=== PATIENT | male | born 1985 | race Caucasian/White ===

== ENCOUNTER 2021-07-28 09:16 | Inpatient (IN) ==
[2021-07-28] MEDS ORDERED: ONDANSETRON INJ 2 MG/ML 2 ML VIAL IV STA (09:27)
[2021-07-28] MEDS ORDERED: diphenhydrAMINE 50 MG/ML VIAL IV STA (09:27)
[2021-07-28] MEDS ORDERED: SODIUM CHLORIDE 0.9% 1000ML 2,000 ML IV SCH (09:30)
--- NOTE | 2021-07-28 09:31 | Emergency Department Note ---
History of Present Illness General Chief complaint: Illness Time Seen by Provider: 07/28/21 09:17 History of Present Illness Maximum Pain Intensity: 8 35-year-old male presents to the ED with a chief complaint of nausea and vomiting started early morning. He states that he has been vomiting ever since. He has not been able to keep any fluids down. He reports feeling crampy all over. The patient states that he does smoke medical marijuana. He has not smoked anything since Saturday. No abdominal pains other than discomfort from vomiting no fevers. No headaches. No chest pains or shortness of breath Home Medications Medication Instructions Recorded Confirmed Type Medical Marijuana 0 mg INHALATION UD 07/28/21 07/28/21 History Allergies Allergy/AdvReac Type Severity Reaction Status Date / Time No Known Allergies Allergy Unverified 07/28/21 10:34 Past Med/Surg History Medical History Ear pain, left Pneumonia Surgical History No pertinent past surgical history Family History Other No pertinent family history in first degree relatives Social History Smoking Status: Current every day smoker Preferred Language: [place]an Feels Safe at Home: Yes Review of Systems A total of 10 systems reviewed and were otherwise negative Physical Exam Vital Signs Vital Signs - 24 hr 07/28/21 09:19 07/28/21 09:29 07/28/21 09:54 Temperature 36.6 C Temperature Source Oral Pulse Rate 102 H 86 Pulse Rate [Finger] 96 H Pulse Rhythm Regular Regular Pulse Rhythm [Finger] Regular Pulse Strength Normal Pulse Strength [Finger] Normal Respiratory Rate 20 20 18 Respiratory Effort / Characteristics Non-Labored Non-Labored Respiratory Depth Normal Normal Blood Pressure 136/110 H Blood Pressure [Left Arm] 127/88 Blood Pressure Mean 118 Blood Pressure Mean [Left Arm] 101 Blood Pressure Position Sitting Blood Pressure Position [Left Arm] Lying Pulse Oximetry 95 97 94 Oxygen Delivery Method Room Air Room Air Room Air Sepsis Recent Fever Within 48 Hours No Sepsis New/Unexplained Change in Mental Status No Sepsis Action Taken by Nursing No Action Required 07/28/21 11:01 07/28/21 13:00 Temperature Temperature Source Pulse Rate Pulse Rate [Finger] 79 84 Pulse Rhythm Pulse Rhythm [Finger] Regular Regular Pulse Strength Pulse Strength [Finger] Normal Normal Respiratory Rate 18 18 Respiratory Effort / Characteristics Non-Labored Non-Labored Respiratory Depth Normal Normal Blood Pressure Blood Pressure [Left Arm] 139/93 144/73 H Blood Pressure Mean Blood Pressure Mean [Left Arm] 108 96 Blood Pressure Position Blood Pressure Position [Left Arm] Lying Lying Pulse Oximetry 92 98 Oxygen Delivery Method Room Air Room Air Sepsis Recent Fever Within 48 Hours Sepsis New/Unexplained Change in Mental Status Sepsis Action Taken by Nursing CONSTITUTIONAL/VITAL SIGNS: Reviewed / noted above. GENERAL: Non-toxic in appearance. INTEGUMENTARY: Warm, dry, and [place]. HEAD: Normocephalic. EYES: without scleral icterus or trauma. ENT/OROPHARYNX: clear and moist. LYMPHADENOPATHY/NECK: Is supple without lymphadenopathy or meningismus. RESPIRATORY: Clear to auscultation bilaterally. No increased work of breathing. CARDIOVASCULAR: Regular rate and rhythm. GI/ABDOMEN: Soft and nontender. No organomegaly or pulsatile mass. EXTREMITIES: Warm and well perfused. BACK: No CVA tenderness. NEUROLOGICAL: Intact without focal deficits. PSYCHIATRIC: normal affect. MUSCULOSKELETAL: Normally developed with good muscle tone. TRIAGE NURSING DOCUMENTATION REVIEWED. Course Administered Medications Lactated Ringer's (Lr) 1,000 mls @ 200 mls/hr IV .Q5H [facility] Stop: 07/29/21 04:44 Last Admin: 07/28/21 14:34 Dose: 200 mls/hr Documented by: [id number] Discontinued Medications Diphenhydramine HCl (Diphenhydramine 50 Mg/Ml Vial) 25 mg IV NOW STA Stop: 07/28/21 09:28 Last Admin: 07/28/21 09:32 Dose: 25 mg Documented by: [id number] Sodium Chloride (Nss 1000ml) 2,000 mls @ 999 mls/hr IV .Q2H1M [facility] Stop: 07/28/21 11:30 Last Infusion: 07/28/21 11:31 Dose: 999 mls/hr Documented by: [id number] Admin: 07/28/21 09:30 Dose: 999 mls/hr Documented by: [id number] Sodium Chloride (Nss 1000ml) 1,000 mls @ 999 mls/hr IV .Q1H1M [facility] Stop: 07/28/21 12:35 Last Infusion: 07/28/21 13:32 Dose: 999 mls/hr Documented by: [id number] Admin: 07/28/21 12:31 Dose: 999 mls/hr Documented by: [id number] Ondansetron HCl (Ondansetron Inj 2 Mg/Ml 2 Ml Vial) 4 mg IV NOW STA Stop: 07/28/21 09:28 Last Admin: 07/28/21 09:32 Dose: 4 mg Documented by: [id number] Medical Decision Making Differential Diagnosis Differential considered: pancreatitis, hepatitis, acute cholecystitis, AAA, UTI, pyelonephritis, kidney stones, appendicitis, diverticulitis, shingles, bowel obstruction, mesenteric ischemia, intussusception,hernia, testicular torsion dehydration Medical Records Attestation: I reviewed the patient's medical records. Home Medications Current Medication List: was personally reviewed by me Laboratory Data Attestation: I reviewed the patient's lab results. Result diagrams: 07/28/21 09:24 07/28/21 14:12 Lab Results 07/28/21 07/28/21 07/28/21 Range/Units 09:24 09:24 11:45 WBC 21.28 H (4.8-10.8) K/uL RBC 5.55 (4.7-6.1) M/uL Hgb 18.9 H (14.0-18.0) g/dL Hct 50.7 (42-52) % MCV 91.4 (80-100) fL MCH 34.1 H (25-34) pg MCHC 37.3 H (32-36) g/dL RDW Std Deviation 43.5 (36.4-46.3) fL RDW Coeff of Rachel 13.2 (11.5-14.5) % Plt Count 246 (130-400) K/uL MPV 11.4 H (7.4-10.4) fL Immature Gran % (Auto) 0.3 % Neut % (Auto) 82.5 % Lymph % (Auto) 5.2 % Travis % (Auto) 12.0 % Eos % (Auto) 0.0 % Baso % (Auto) 0.0 % Neut # (Auto) 17.54 H (1.4-6.5) K/uL Lymph # (Auto) 1.10 L (1.2-3.4) K/uL Travis # (Auto) 2.55 H (0.11-0.59) K/uL Eos # (Auto) 0.01 (0-0.5) K/uL Baso # (Auto) 0.01 (0-0.2) K/uL Immature Gran # (Auto) 0.07 H (0.00-0.02) K/uL POC pH 7.52 H* (7.35-7.45) POC pCO2 27 L (35-46) mmHg POC pO2 38 L (80-95) mmHg POC HCO3 22 (19-24) natalie/L POC Total CO2 23 L (24-31) mmol/L POC Base Excess -1.0 (-9-1.8) natalie/L ABG pH ABG pCO2 ABG pO2 ABG HCO3 POC ABG O2 Sat 80.0 L (90-95) % ABG O2 Saturation ABG Base Excess [place] Test Barometric Pressure Oxygen Given Sodium 133 L (136-145) mmol/L Potassium 3.7 (3.5-5.1) mmol/L Chloride 87 L (98-107) mmol/L Carbon Dioxide 17 L (21-32) mmol/L Anion Gap 29 H (3-11) BUN 43 H (6-23) mg/dl Creatinine 5.18 H* (0.6-1.4) mg/dl Est Cr Clr Drug Dosing 18.8 ml/min Est GFR ( Amer) 15.2 ml/min Est GFR (Non-Af Amer) 13.1 ml/min BUN/Creatinine Ratio 8.3 L (10-20) Glucose 228 H (70-99(Fasting)) mg/dl Estimat Average Glucose mg/dl Hemoglobin A1c (4.5-5.6) % Osmolality (280-300) mOsm/kg Lactate (0.4-2.0) mmol/L Calcium 11.8 H (8.5-10.1) mg/dl Total Bilirubin 1.4 H (0.2-1.0) mg/dl Direct Bilirubin (0-0.2) mg/dl AST 43 H (13-39) U/L ALT 38 (7-52) U/L Alkaline Phosphatase 79 (34-104) U/L Total Creatine Kinase (30-223) U/L Total Protein 10.1 H (6.0-8.3) gm/dl Albumin 6.7 H (3.4-5.0) gm/dl Globulin 3.4 (2.5-4.0) gm/dl Albumin/Globulin Ratio 2.0 (0.9-2) Lipase 16 (11-82) U/L Procalcitonin (0-0.5) ng/ml Salicylates (3.0-30) mg/dl Acetaminophen (10-30) ug/ml Ethyl Alcohol mg/dL (<10.0) mg/dl SARS-CoV-2, RNA, NAAT (NEGATIVE) 07/28/21 07/28/21 07/28/21 Range/Units 11:54 11:54 11:54 WBC (4.8-10.8) K/uL RBC (4.7-6.1) M/uL Hgb (14.0-18.0) g/dL Hct (42-52) % MCV (80-100) fL MCH (25-34) pg MCHC (32-36) g/dL RDW Std Deviation (36.4-46.3) fL RDW Coeff of Rachel (11.5-14.5) % Plt Count (130-400) K/uL MPV (7.4-10.4) fL Immature Gran % (Auto) % Neut % (Auto) % Lymph % (Auto) % Travis % (Auto) % Eos % (Auto) % Baso % (Auto) % Neut # (Auto) (1.4-6.5) K/uL Lymph # (Auto) (1.2-3.4) K/uL Travis # (Auto) (0.11-0.59) K/uL Eos # (Auto) (0-0.5) K/uL Baso # (Auto) (0-0.2) K/uL Immature Gran # (Auto) (0.00-0.02) K/uL POC pH (7.35-7.45) POC pCO2 (35-46) mmHg POC pO2 (80-95) mmHg POC HCO3 (19-24) natalie/L POC Total CO2 (24-31) mmol/L POC Base Excess (-9-1.8) natalie/L ABG pH ABG pCO2 ABG pO2 ABG HCO3 POC ABG O2 Sat (90-95) % ABG O2 Saturation ABG Base Excess [place] Test Barometric Pressure Oxygen Given Sodium (136-145) mmol/L Potassium (3.5-5.1) mmol/L Chloride (98-107) mmol/L Carbon Dioxide (21-32) mmol/L Anion Gap (3-11) BUN (6-23) mg/dl Creatinine (0.6-1.4) mg/dl Est Cr Clr Drug Dosing ml/min Est GFR ( Amer) ml/min Est GFR (Non-Af Amer) ml/min BUN/Creatinine Ratio (10-20) Glucose (70-99(Fasting)) mg/dl Estimat Average Glucose 105 mg/dl Hemoglobin A1c 5.3 (4.5-5.6) % Osmolality 298 (280-300) mOsm/kg Lactate (0.4-2.0) mmol/L Calcium (8.5-10.1) mg/dl Total Bilirubin (0.2-1.0) mg/dl Direct Bilirubin (0-0.2) mg/dl AST (13-39) U/L ALT (7-52) U/L Alkaline Phosphatase (34-104) U/L Total Creatine Kinase (30-223) U/L Total Protein (6.0-8.3) gm/dl Albumin (3.4-5.0) gm/dl Globulin (2.5-4.0) gm/dl Albumin/Globulin Ratio (0.9-2) Lipase (11-82) U/L Procalcitonin (0-0.5) ng/ml Salicylates < 3.0 L (3.0-30) mg/dl Acetaminophen < 3 L (10-30) ug/ml Ethyl Alcohol mg/dL (<10.0) mg/dl SARS-CoV-2, RNA, NAAT (NEGATIVE) 07/28/21 07/28/21 07/28/21 Range/Units 11:54 11:54 11:56 WBC (4.8-10.8) K/uL RBC (4.7-6.1) M/uL Hgb (14.0-18.0) g/dL Hct (42-52) % MCV (80-100) fL MCH (25-34) pg MCHC (32-36) g/dL RDW Std Deviation (36.4-46.3) fL RDW Coeff of Rachel (11.5-14.5) % Plt Count (130-400) K/uL MPV (7.4-10.4) fL Immature Gran % (Auto) % Neut % (Auto) % Lymph % (Auto) % Travis % (Auto) % Eos % (Auto) % Baso % (Auto) % Neut # (Auto) (1.4-6.5) K/uL Lymph # (Auto) (1.2-3.4) K/uL Travis # (Auto) (0.11-0.59) K/uL Eos # (Auto) (0-0.5) K/uL Baso # (Auto) (0-0.2) K/uL Immature Gran # (Auto) (0.00-0.02) K/uL POC pH (7.35-7.45) POC pCO2 (35-46) mmHg POC pO2 (80-95) mmHg POC HCO3 (19-24) natalie/L POC Total CO2 (24-31) mmol/L POC Base Excess (-9-1.8) natalie/L ABG pH Cancelled ABG pCO2 Cancelled ABG pO2 Cancelled ABG HCO3 Cancelled POC ABG O2 Sat (90-95) % ABG O2 Saturation Cancelled ABG Base Excess Cancelled [place] Test Cancelled Barometric Pressure Cancelled Oxygen Given Cancelled Sodium (136-145) mmol/L Potassium (3.5-5.1) mmol/L Chloride (98-107) mmol/L Carbon Dioxide (21-32) mmol/L Anion Gap (3-11) BUN (6-23) mg/dl Creatinine (0.6-1.4) mg/dl Est Cr Clr Drug Dosing ml/min Est GFR ( Amer) ml/min Est GFR (Non-Af Amer) ml/min BUN/Creatinine Ratio (10-20) Glucose (70-99(Fasting)) mg/dl Estimat Average Glucose mg/dl Hemoglobin A1c (4.5-5.6) % Osmolality (280-300) mOsm/kg Lactate (0.4-2.0) mmol/L Calcium (8.5-10.1) mg/dl Total Bilirubin (0.2-1.0) mg/dl Direct Bilirubin (0-0.2) mg/dl AST (13-39) U/L ALT (7-52) U/L Alkaline Phosphatase (34-104) U/L Total Creatine Kinase 941 H (30-223) U/L Total Protein (6.0-8.3) gm/dl Albumin (3.4-5.0) gm/dl Globulin (2.5-4.0) gm/dl Albumin/Globulin Ratio (0.9-2) Lipase (11-82) U/L Procalcitonin 0.09 (0-0.5) ng/ml Salicylates (3.0-30) mg/dl Acetaminophen (10-30) ug/ml Ethyl Alcohol mg/dL (<10.0) mg/dl SARS-CoV-2, RNA, NAAT (NEGATIVE) 07/28/21 07/28/21 07/28/21 Range/Units 11:56 12:39 12:40 WBC (4.8-10.8) K/uL RBC (4.7-6.1) M/uL Hgb (14.0-18.0) g/dL Hct (42-52) % MCV (80-100) fL MCH (25-34) pg MCHC (32-36) g/dL RDW Std Deviation (36.4-46.3) fL RDW Coeff of Rachel (11.5-14.5) % Plt Count (130-400) K/uL MPV (7.4-10.4) fL Immature Gran % (Auto) % Neut % (Auto) % Lymph % (Auto) % Travis % (Auto) % Eos % (Auto) % Baso % (Auto) % Neut # (Auto) (1.4-6.5) K/uL Lymph # (Auto) (1.2-3.4) K/uL Travis # (Auto) (0.11-0.59) K/uL Eos # (Auto) (0-0.5) K/uL Baso # (Auto) (0-0.2) K/uL Immature Gran # (Auto) (0.00-0.02) K/uL POC pH (7.35-7.45) POC pCO2 (35-46) mmHg POC pO2 (80-95) mmHg POC HCO3 (19-24) natalie/L POC Total CO2 (24-31) mmol/L POC Base Excess (-9-1.8) natalie/L ABG pH 7.57 H* ABG pCO2 24 L ABG pO2 97 H ABG HCO3 21 POC ABG O2 Sat (90-95) % ABG O2 Saturation 98.1 H ABG Base Excess 1.6 [place] Test Pos Barometric Pressure 722.8 Oxygen Given RA Sodium 133 L (136-145) mmol/L Potassium 3.7 (3.5-5.1) mmol/L Chloride 96 L (98-107) mmol/L Carbon Dioxide 20 L (21-32) mmol/L Anion Gap 17 H (3-11) BUN 48 H (6-23) mg/dl Creatinine 3.91 H D (0.6-1.4) mg/dl Est Cr Clr Drug Dosing 25.0 ml/min Est GFR ( Amer) 21.3 ml/min Est GFR (Non-Af Amer) 18.4 ml/min BUN/Creatinine Ratio 12.3 (10-20) Glucose 137 H (70-99(Fasting)) mg/dl Estimat Average Glucose mg/dl Hemoglobin A1c (4.5-5.6) % Osmolality (280-300) mOsm/kg Lactate 2.4 H* (0.4-2.0) mmol/L Calcium 9.9 (8.5-10.1) mg/dl Total Bilirubin (0.2-1.0) mg/dl Direct Bilirubin (0-0.2) mg/dl AST (13-39) U/L ALT (7-52) U/L Alkaline Phosphatase (34-104) U/L Total Creatine Kinase (30-223) U/L Total Protein (6.0-8.3) gm/dl Albumin (3.4-5.0) gm/dl Globulin (2.5-4.0) gm/dl Albumin/Globulin Ratio (0.9-2) Lipase (11-82) U/L Procalcitonin (0-0.5) ng/ml Salicylates (3.0-30) mg/dl Acetaminophen (10-30) ug/ml Ethyl Alcohol mg/dL (<10.0) mg/dl SARS-CoV-2, RNA, NAAT (NEGATIVE) 07/28/21 07/28/21 07/28/21 Range/Units 12:40 14:12 14:12 WBC (4.8-10.8) K/uL RBC (4.7-6.1) M/uL Hgb (14.0-18.0) g/dL Hct (42-52) % MCV (80-100) fL MCH (25-34) pg MCHC (32-36) g/dL RDW Std Deviation (36.4-46.3) fL RDW Coeff of Rachel (11.5-14.5) % Plt Count (130-400) K/uL MPV (7.4-10.4) fL Immature Gran % (Auto) % Neut % (Auto) % Lymph % (Auto) % Travis % (Auto) % Eos % (Auto) % Baso % (Auto) % Neut # (Auto) (1.4-6.5) K/uL Lymph # (Auto) (1.2-3.4) K/uL Travis # (Auto) (0.11-0.59) K/uL Eos # (Auto) (0-0.5) K/uL Baso # (Auto) (0-0.2) K/uL Immature Gran # (Auto) (0.00-0.02) K/uL POC pH (7.35-7.45) POC pCO2 (35-46) mmHg POC pO2 (80-95) mmHg POC HCO3 (19-24) natalie/L POC Total CO2 (24-31) mmol/L POC Base Excess (-9-1.8) natalie/L ABG pH ABG pCO2 ABG pO2 ABG HCO3 POC ABG O2 Sat (90-95) % ABG O2 Saturation ABG Base Excess [place] Test Barometric Pressure Oxygen Given Sodium 133 L (136-145) mmol/L Potassium 3.6 (3.5-5.1) mmol/L Chloride 96 L (98-107) mmol/L Carbon Dioxide 22 (21-32) mmol/L Anion Gap 15 H (3-11) BUN 46 H (6-23) mg/dl Creatinine 3.56 H D (0.6-1.4) mg/dl Est Cr Clr Drug Dosing 27.4 ml/min Est GFR ( Amer) 23.9 ml/min Est GFR (Non-Af Amer) 20.6 ml/min BUN/Creatinine Ratio 12.9 (10-20) Glucose 134 H (70-99(Fasting)) mg/dl Estimat Average Glucose mg/dl Hemoglobin A1c (4.5-5.6) % Osmolality (280-300) mOsm/kg Lactate (0.4-2.0) mmol/L Calcium 9.8 (8.5-10.1) mg/dl Total Bilirubin 1.1 H (0.2-1.0) mg/dl Direct Bilirubin 0.2 (0-0.2) mg/dl AST 43 H (13-39) U/L ALT 31 (7-52) U/L Alkaline Phosphatase 59 (34-104) U/L Total Creatine Kinase (30-223) U/L Total Protein 8.0 D (6.0-8.3) gm/dl Albumin 5.1 H (3.4-5.0) gm/dl Globulin (2.5-4.0) gm/dl Albumin/Globulin Ratio (0.9-2) Lipase (11-82) U/L Procalcitonin (0-0.5) ng/ml Salicylates (3.0-30) mg/dl Acetaminophen (10-30) ug/ml Ethyl Alcohol mg/dL < 10.0 (<10.0) mg/dl SARS-CoV-2, RNA, NAAT (NEGATIVE) 07/28/21 07/28/21 Range/Units 14:12 14:35 WBC (4.8-10.8) K/uL RBC (4.7-6.1) M/uL Hgb (14.0-18.0) g/dL Hct (42-52) % MCV (80-100) fL MCH (25-34) pg MCHC (32-36) g/dL RDW Std Deviation (36.4-46.3) fL RDW Coeff of Rachel (11.5-14.5) % Plt Count (130-400) K/uL MPV (7.4-10.4) fL Immature Gran % (Auto) % Neut % (Auto) % Lymph % (Auto) % Travis % (Auto) % Eos % (Auto) % Baso % (Auto) % Neut # (Auto) (1.4-6.5) K/uL Lymph # (Auto) (1.2-3.4) K/uL Travis # (Auto) (0.11-0.59) K/uL Eos # (Auto) (0-0.5) K/uL Baso # (Auto) (0-0.2) K/uL Immature Gran # (Auto) (0.00-0.02) K/uL POC pH (7.35-7.45) POC pCO2 (35-46) mmHg POC pO2 (80-95) mmHg POC HCO3 (19-24) natalie/L POC Total CO2 (24-31) mmol/L POC Base Excess (-9-1.8) natalie/L ABG pH ABG pCO2 ABG pO2 ABG HCO3 POC ABG O2 Sat (90-95) % ABG O2 Saturation ABG Base Excess [place] Test Barometric Pressure Oxygen Given Sodium (136-145) mmol/L Potassium (3.5-5.1) mmol/L Chloride (98-107) mmol/L Carbon Dioxide (21-32) mmol/L Anion Gap (3-11) BUN (6-23) mg/dl Creatinine (0.6-1.4) mg/dl Est Cr Clr Drug Dosing ml/min Est GFR ( Amer) ml/min Est GFR (Non-Af Amer) ml/min BUN/Creatinine Ratio (10-20) Glucose (70-99(Fasting)) mg/dl Estimat Average Glucose mg/dl Hemoglobin A1c (4.5-5.6) % Osmolality (280-300) mOsm/kg Lactate 1.2 (0.4-2.0) mmol/L Calcium (8.5-10.1) mg/dl Total Bilirubin (0.2-1.0) mg/dl Direct Bilirubin (0-0.2) mg/dl AST (13-39) U/L ALT (7-52) U/L Alkaline Phosphatase (34-104) U/L Total Creatine Kinase (30-223) U/L Total Protein (6.0-8.3) gm/dl Albumin (3.4-5.0) gm/dl Globulin (2.5-4.0) gm/dl Albumin/Globulin Ratio (0.9-2) Lipase (11-82) U/L Procalcitonin (0-0.5) ng/ml Salicylates (3.0-30) mg/dl Acetaminophen (10-30) ug/ml Ethyl Alcohol mg/dL (<10.0) mg/dl SARS-CoV-2, RNA, NAAT NEGATIVE (NEGATIVE) MDM Narrative 35-year-old male presents with nausea and vomiting. No diarrhea. No abdominal pains. Vital signs reveal mild hypertension. He was treated with IV Zofran, 2 L normal saline IV and IV Benadryl. The patient's laboratory studies suggest acute kidney injury with dehydration. The patient has a leukocytosis and a metabolic acidosis likely related to dehydration and vomiting. Covid test is negative. The patient denies taking any substances other than smoking the marijuana on Saturday. The patient will be seen by the hospitalist service for further inpatient evaluation and care. Impression & Plan Acute kidney injury, Nausea & vomiting, Acute dehydration Discharge Plan Visit Data Chief Complaint: Illness ED Provider: Orville Valdez Discharge Problem: Acute kidney injury, Nausea & vomiting, Acute dehydration Patient Disposition: Admitted As Inpatient Forms Stand [facility] Prescriptions Prescriptions: No Action Medical Marijuana 0 MG 0 mg inhalation UD RF: 0 Referrals Referrals: PCP,NO [Physician] -
[2021-07-28 09:40] LABS: Basophils # (auto) 0.01 K/uL (0-0.2); Eosinophils # (auto) 0.01 K/uL (0-0.5); Hematocrit (blood only) 50.7 % (42-52); Hemoglobin 18.9 g/dL (14.0-18.0); Immature Granulocytes # (auto) 0.07 K/uL (0.00-0.02); Immature Granulocytes % (auto) 0.3 %; Lymphocytes % (auto) 5.2 %; Mean Corpuscular Hemoglobin 34.1 pg (25-34); Mean Corpuscular Hgb Conc 37.3 g/dL (32-36); Mean Corpuscular Volume 91.4 fL (80-100); Mean Platelet Volume 11.4 fL (7.4-10.4); Monocytes # (auto) 2.55 K/uL (0.11-0.59); Neutrophils # (auto) 17.54 K/uL (1.4-6.5); Neutrophils % (auto) 82.5 %; Platelet Count 246 K/uL (130-400); RDW Coefficient of Variation 13.2 % (11.5-14.5); RDW Standard Deviation 43.5 fL (36.4-46.3); Red Blood Count 5.55 M/uL (4.7-6.1); White Blood Count 21.28 K/uL (4.8-10.8)
[2021-07-28 09:59] LABS: BUN Creatinine Ratio 8.3 (10-20); Bilirubin,Total 1.4 mg/dl (0.2-1.0); Calcium 11.8 mg/dl (8.5-10.1); Creatinine Clr Calc Pharmacy 18.8 ml/min; Est GFR (African American) 15.2 ml/min; Est GFR (Non-African American) 13.1 ml/min; Potassium 3.7 mmol/L (3.5-5.1); Total Protein 10.1 gm/dl (6.0-8.3)
[2021-07-28 10:09] LABS: Albumin Level 6.7 gm/dl (3.4-5.0); Globulin 3.4 gm/dl (2.5-4.0)
[2021-07-28] MEDS ORDERED: SODIUM CHLORIDE 0.9% 1000ML 1,000 ML IV SCH (11:35)
[2021-07-28 12:07] LABS: iSTAT Arterial Blood Gas HCO3 22 meg/L (19-24); iSTAT Arterial Blood Gas pCO2 27 mmHg (35-46); iSTAT Arterial Blood Gas pH 7.52 (7.35-7.45); iSTAT Arterial Blood Gas pO2 38 mmHg (80-95); iSTAT Carbon Dioxide 23 mmol/L (24-31)
--- NOTE | 2021-07-28 12:16 | History & Physical Report ---
Date of Service July 28, 2021 Assessment & Plan (1) Nausea & vomiting: Plan: 35 yo male with N/V, and severe acute kidneyt failure accompanied by metabolic acidosis and primary respiratory alkalosis likely due to cannabinoid hyperemesis syndrome. checking methanol, urine drug screen, ABG (2) Acute kidney injury: Plan: give IVF give second NS lite bolus and then will continue IVF at 200 ml/hr will check bmp q4h (3) Pain of right heel: Plan: from previous injury f/u with podiatry [facility] as outpatient x-rays are negative (4) Acute dehydration: Plan: continue with IVF. (5) Acute renal failure: Plan: creatinine is above 5. will give IVF and monitor. (6) Metabolic acidosis: Plan: ABG show primary resp. alkalosis and metabolic acidosis, (7) Acute respiratory alkalosis: Plan: likely due to problem 1. History of Present Illness Chief Complaint: vomiting Primary Care Provider: Matt Ferrer IV, MD 35 yo male on "prescription" marijuana and who drinks 3 x weekly 3 mixed alcoholic beverages on average, presentes with a 2 day history of nausea vomiting. Patient reports that he has not been able to keep any food down. Patient denies blood in his vomit. Patient reports cramping in his abdomen. Allergies Allergy/AdvReac Type Severity Reaction Status Date / Time coffee (Coffea arabica) AdvReac Congested Verified 07/28/21 17:49 tomato AdvReac Diarrhea Verified 07/28/21 17:49 Home Medications Medication Instructions Recorded Confirmed Type Medical Marijuana 0 mg INHALATION UD 07/28/21 07/28/21 History Past Med/Surg History Medical History Ear pain, left Pneumonia Surgical History No pertinent past surgical history Family History Other No pertinent family history in first degree relatives Social History Smoking Status: Current every day smoker Hx Alcohol Use: Yes Alcohol type: hard liquor Preferred Language: Serbian Party Plan Dealer Required: No Beliefs That Will Affect Care: None Current Living Situation: Spouse Feels Safe at Home: No Assistive Devices: None Review of Systems Constitutional: no fever Eyes: no blind spots Ear, Nose, Mouth, Throat: no ear trauma Respiratory: no cough Cardiovascular: no chest pain Gastrointestinal: + belching Genitourinary: + dysuria Musculoskeletal: + back pain Integumentary: + acne Neurologic: no gait abnormality Psychiatric: no behavioral changes Endocrine: no fatigue Hematologic / Lymphatic: no easy bleeding Allergy / Immunological: no GI upset with certain foods Physical Exam Constitutional: WD/WN, vitals as above Eyes: PERRL, conjunctivae normal, anicteric sclerae Neck: trachea midline, no thyromegaly Respiratory: normal respiratory effort, lungs clear to auscultation Gastrointestinal (Abdomen): normal bowel sounds, soft, nontender, no hepatosplenomegaly Musculoskeletal: no cyanosis or clubbing, extremities motor strength 5/5 Skin: no rashes, warm and dry Neurologic: PERRL, EOMI, accommodation nl, no face palsy, no dysarthria Psychiatric: A+Ox3, euthymic affect Lymphatic: no cervical or axillary lymphadenopathy Results & Data Results & Data ([facility]) Vital Signs (Past 12 Hours) Vital Signs Temp Pulse Pulse Resp BP BP Pulse Ox 07/28/21 11:01 79 18 139/93 92 07/28/21 09:54 96 H 18 127/88 94 07/28/21 09:29 86 20 97 07/28/21 09:19 36.6 C 102 H 20 136/110 H 95 PG Care Time/CCT Total # of Minutes Spent Total Time Spent with Patient: Total time spent is greater than 50% in coordination of care (as documented) at patient's floor/unit and/or counseling patient: Coding Level of Care Code 02391 Initial Inpt Care Lvl 3 Diagnoses Nausea & vomiting R11.2 Acute kidney injury N17.9 Pain of right heel M79.671 Acute dehydration E86.0 Acute renal failure N17.9 Metabolic acidosis E87.2 Acute respiratory alkalosis E87.3
[2021-07-28 12:23] LABS: Estimated Average Glucose 105 mg/dl; Hemoglobin A1C 5.3 % (4.5-5.6)
[2021-07-28 12:29] LABS: Acetaminophen < 3 ug/ml (10-30); Salicylate < 3.0 mg/dl (3.0-30)
[2021-07-28 12:58] LABS: Allen Test Pos (Pos); Base Excess ABG 1.6 mEq/L (-9-1.8); HCO3 ABG 21 mmol/L (19-24); Oxygen Saturation ABG 98.1 % (90-95); PCO2 ABG 24 mmHg (35-46); PO2 ABG 97 mmHg (80-95)
[2021-07-28 13:00] LABS: pH ABG 7.57 (7.35-7.45)
[2021-07-28 13:14] LABS: BUN Creatinine Ratio 12.3 (10-20); Calcium 9.9 mg/dl (8.5-10.1); Est GFR (African American) 21.3 ml/min; Est GFR (Non-African American) 18.4 ml/min; Potassium 3.7 mmol/L (3.5-5.1)
[2021-07-28 13:36] LABS: Albumin Level 5.1 gm/dl (3.4-5.0); Bilirubin Direct 0.2 mg/dl (0-0.2); Bilirubin,Total 1.1 mg/dl (0.2-1.0)
[2021-07-28] MEDS: LACTATED RINGER'S 1,000 ML IV SCH ×2 (14:34→19:24)
[2021-07-28 14:45] LABS: BUN Creatinine Ratio 12.9 (10-20); Calcium 9.8 mg/dl (8.5-10.1); Creatinine Clr Calc Pharmacy 27.4 ml/min; Est GFR (African American) 23.9 ml/min; Est GFR (Non-African American) 20.6 ml/min; Potassium 3.6 mmol/L (3.5-5.1)
[2021-07-28] MEDS ORDERED: ONDANSETRON INJ 2 MG/ML 2 ML VIAL ONE (15:21)
[2021-07-28 19:03] LABS: Appearance Urine Cloudy (Clear); Bacteria Urine Automated Negative (Negative); Bilirubin Urine Negative (Negative); Blood Urine 2+ (Negative); Color Urine Yellow; Epithelial Cell Urine Auto >30 /lpf (0-5); Glucose Urine UA Negative (Negative); Ketones Urine Trace (Negative); Leukocyte Esterase Urine Negative (Negative); Nitrite Urine Negative (Negative); Protein Urine 2+ (Negative); RBC Urine Automated 0-4 /hpf (0-4); Urobilinogen Urine Negative (Negative)
[2021-07-28] MEDS: PROCHLORPERAZINE 5 MG in SYRINGE 4 ML IV PRN (19:25)
[2021-07-28 19:28] LABS: Urine Chloride < 15 mmol/L; Urine Potassium 75.7 mmol/L; Urine Sodium 33 mmol/L
[2021-07-28 19:43] LABS: Amphetamines+Metham, Urine Neg (Neg); Barbiturates, Urine Neg (Neg); Benzodiazepine, Urine Neg (Neg); Cocaine, Urine Neg (Neg); MDMA (Ecstacy), Urine Neg (Neg); Methadone, Urine Neg (Neg); Opiate, Urine Neg (Neg); Phencyclidine, Urine Neg (Neg)
[2021-07-28] MEDS ORDERED: CYCLOBENZAPRINE HCL 10 MG TAB PO STA (20:15)
[2021-07-28 20:21] LABS: BUN Creatinine Ratio 18.9 (10-20); Calcium 9.1 mg/dl (8.5-10.1); Creatinine Clr Calc Pharmacy 48.3 ml/min; Est GFR (African American) 41.2 ml/min; Est GFR (Non-African American) 35.5 ml/min; Potassium 3.5 mmol/L (3.5-5.1)
[2021-07-28] MEDS: FLUTICASONE PROPIONATE NA SPR 16 GM BTL SCH (21:19)
[2021-07-28] MEDS: ACETAMINOPHEN 325 MG TAB PO PRN (21:21)
[2021-07-28] MEDS ORDERED: FAMOTIDINE 20 MG in SYRINGE 3 ML IV ONE (21:45)
[2021-07-28] MEDS ORDERED: HEPARIN SOD 5,000 UNIT/0.5 ML VIAL SQ SCH (22:00)
[2021-07-28] MEDS: CAPSAICIN CR 0.075% 60 GM TUBE EXT SCH (22:19)
[2021-07-28] MEDS: HEPARIN SOD 5,000 UNIT/0.5 ML VIAL SQ SCH (23:20)
[2021-07-29] MEDS: LACTATED RINGER'S 1,000 ML IV SCH ×2 (00:26→17:39)
[2021-07-29] MEDS: HEPARIN SOD 5,000 UNIT/0.5 ML VIAL SQ SCH ×3 (06:09→20:04)
[2021-07-29 06:10] LABS: Base Excess VBG 2.1 mEq/L; HCO3 VBG 26 mmol/L; Oxygen Saturation VBG 96.5 %; PCO2 VBG 36 mmHg (38-50); PO2 VBG 79 mmHg; pH VBG 7.47 (7.36-7.41)
[2021-07-29] MEDS: ACETAMINOPHEN 325 MG TAB PO PRN (06:10)
[2021-07-29 06:24] LABS: Basophils # (auto) 0.01 K/uL (0-0.2); Basophils % (auto) 0.1 %; Eosinophils # (auto) 0.04 K/uL (0-0.5); Eosinophils % (auto) 0.3 %; Hematocrit (blood only) 38.9 % (42-52); Hemoglobin 14.2 g/dL (14.0-18.0); Immature Granulocytes # (auto) 0.02 K/uL (0.00-0.02); Immature Granulocytes % (auto) 0.2 %; Lymphocytes # (auto) 1.43 K/uL (1.2-3.4); Lymphocytes % (auto) 12.3 %; Mean Corpuscular Hgb Conc 36.5 g/dL (32-36); Mean Corpuscular Volume 90.5 fL (80-100); Monocytes # (auto) 1.48 K/uL (0.11-0.59); Monocytes % (auto) 12.7 %; Neutrophils # (auto) 8.66 K/uL (1.4-6.5); Neutrophils % (auto) 74.4 %; Platelet Count 167 K/uL (130-400); RDW Coefficient of Variation 13.3 % (11.5-14.5); RDW Standard Deviation 43.9 fL (36.4-46.3); White Blood Count 11.64 K/uL (4.8-10.8)
[2021-07-29 06:33] LABS: Albumin Level 4.3 gm/dl (3.4-5.0); BUN Creatinine Ratio 25.4 (10-20); Bilirubin,Total 1.3 mg/dl (0.2-1.0); Calcium 8.9 mg/dl (8.5-10.1); Creatinine Clr Calc Pharmacy 89.9 ml/min; Est GFR (African American) 87.2 ml/min; Est GFR (Non-African American) 75.3 ml/min; Globulin 2.2 gm/dl (2.5-4.0); Potassium 3.7 mmol/L (3.5-5.1); Total Protein 6.5 gm/dl (6.0-8.3)
[2021-07-29] MEDS: ONDANSETRON INJ 2 MG/ML 2 ML VIAL IV PRN ×2 (08:44→15:02)
[2021-07-29] MEDS: CAPSAICIN CR 0.075% 60 GM TUBE EXT SCH ×2 (09:36→20:01)
[2021-07-29] MEDS: PANTOprazole 40 MG TAB PO SCH ×2 (09:36→20:03)
[2021-07-29] MEDS ORDERED: PSEUDOEPHEDRINE HCL 30 MG TAB PO STA (12:57)
[2021-07-29] MEDS ORDERED: LORATADINE 10 MG TAB PO ONE (13:00)
[2021-07-29 14:41] LABS: Methyl Alcohol Comment WHOLE BLOOD; Methyl Alcohol Level NONE DETECTED (NONE DETECTED)
[2021-07-29] MEDS: PROCHLORPERAZINE 5 MG in SYRINGE 4 ML IV PRN (20:01)
[2021-07-29] MEDS: FLUTICASONE PROPIONATE NA SPR 16 GM BTL SCH (20:02)
--- NOTE | 2021-07-29 20:17 | Hospitalist Progress Note ---
Date of Service July 29, 2021 Assessment & Plan (1) Nausea & vomiting: Plan: 35 yo male with N/V, and severe acute kidneyt failure accompanied by metabolic acidosis and primary respiratory alkalosis likely due to cannabinoid hyperemesis syndrome. UDS showed THC use AKF showed improvement as creatinine has normalized. Anion gap has also closed. Will continue clear liquid diet. Patient reports normally he does not like jello as it makes him nauseous. His will bring in home made soup. (2) Acute kidney injury: Plan: as stated above. Resolved with IVF. (3) Pain of right heel: Plan: from previous injury contusion diagnosed by [facility] f/u with [employer] (4) Acute dehydration: Plan: resolved. (5) Acute renal failure: Plan: creatinine has resolved. (6) Metabolic acidosis: Plan: ABG show primary resp. alkalosis and metabolic acidosis, resolved. (7) Acute respiratory alkalosis: Plan: likely due to problem 1. (8) OME (otitis media with effusion): Plan: Left otitis media with effusion. Does not appear to be bacterial. will place on sudfed, and antihistamine Admission and Anticipated Discharge Date Admission Date: July 28, 2021 Subjective Patient reports feeling mildly better. He states he has been unable to keep anything down. He reports that he is complaining of ear fullness on his left ear, and reports muffled sounds. This occured after he vomited. Review of Systems Review of Systems: All systems reviewed & are unremarkable except as noted in HPI & below Physical Exam Physical Exam: Constitutional: WD/WN, vitals as above Ears: effusion noted on left ear inspection with otoscope, tympanic membrane is intacted. Eyes: PERRL, conjunctivae normal, anicteric sclerae Neck: trachea midline, no thyromegaly Respiratory: normal respiratory effort, lungs clear to auscultation Gastrointestinal (Abdomen): normal bowel sounds, soft, nontender, no hepatospl enomegaly Musculoskeletal: no cyanosis or clubbing, extremities motor strength 5/5 Skin: no rashes, warm and dry Neurologic: PERRL, EOMI, accommodation nl, no face palsy, no dysarthria Psychiatric: A+Ox3, euthymic affect Lymphatic: no cervical or axillary lymphadenopathy Results & Data Results & [facility]) Vital Signs (Past 12 Hours) Vital Signs Temp Pulse Pulse Resp BP Pulse Ox 07/29/21 16:47 63 07/29/21 16:00 37 C 60 18 131/69 94 PG Care Time/CCT Total # of Minutes Spent Total Time Spent with Patient: Total time spent is greater than 50% in coordination of care (as documented) at patient's floor/unit and/or counseling patient: Coding Level of Care Code 65577 Subseq Hosp Care Lvl 3 Diagnoses Nausea & vomiting R11.2 Acute kidney injury N17.9 Pain of right heel M79.671 Acute dehydration E86.0 Acute renal failure N17.9 Metabolic acidosis E87.2 Acute respiratory alkalosis E87.3 OME (otitis media with effusion) H65.90
--- NOTE | 2021-07-29 20:33 | Communication Note ---
Date of Service: July 29, 2021 Notified by nursing that patient had concerns about botulism. He states that he had prepared pastrami at home using sous vide (vacuum) technique on 07/16/21. He states he has been trained in this technique and has performed it many times, but that the temperature may have been slightly off this time. He ate some of this pastrami on 07/26/21 at 4pm and notes that his intractable N/V that started overnight hat night after visiting a bar. Subjectively, he states overall his symptoms have improved some since admission, though still is unable to tolerate PO intake. Exam: Vitals reviewed. CN II-XII intact. EOMI. PERRL. Strength and sensation of both upper and lower extremities are intact. No dysmetria. Conversational. A/P: Lower suspicion for botulism per reassuring subjective and exam. Instructed patient to notify staff if worsening of symptoms. Follow up with day team. Uriel Gonzales PGY2 night resident
[2021-07-30] MEDS: LACTATED RINGER'S 1,000 ML IV SCH ×4 (00:14→20:10)
[2021-07-30] MEDS: ONDANSETRON INJ 2 MG/ML 2 ML VIAL IV PRN ×3 (00:16→17:44)
[2021-07-30] MEDS: HEPARIN SOD 5,000 UNIT/0.5 ML VIAL SQ SCH ×3 (05:47→21:01)
[2021-07-30] MEDS: PANTOprazole 40 MG TAB PO SCH ×2 (08:03→20:08)
[2021-07-30] MEDS: CAPSAICIN CR 0.075% 60 GM TUBE EXT SCH ×2 (08:04→20:10)
[2021-07-30 08:27] LABS: Hematocrit (blood only) 37.6 % (42-52); Hemoglobin 14.1 g/dL (14.0-18.0); Mean Corpuscular Hemoglobin 34.4 pg (25-34); Mean Corpuscular Hgb Conc 37.5 g/dL (32-36); Mean Corpuscular Volume 91.7 fL (80-100); Mean Platelet Volume 11.1 fL (7.4-10.4); Platelet Count 145 K/uL (130-400); RDW Standard Deviation 43.6 fL (36.4-46.3); White Blood Count 6.61 K/uL (4.8-10.8)
[2021-07-30 08:45] LABS: Albumin Level 4.1 gm/dl (3.4-5.0); BUN Creatinine Ratio 20.2 (10-20); Bilirubin Direct 0.3 mg/dl (0-0.2); Bilirubin,Total 1.6 mg/dl (0.2-1.0); Calcium 8.8 mg/dl (8.5-10.1); Creatinine Clr Calc Pharmacy 116.7 ml/min; Est GFR (African American) 119.6 ml/min; Est GFR (Non-African American) 103.2 ml/min; Potassium 3.9 mmol/L (3.5-5.1); Total Protein 6.3 gm/dl (6.0-8.3)
[2021-07-30] MEDS ORDERED: METOCLOPRAMIDE HCL INJ 5 MG/ML 2 ML VIAL IV ONE (09:00)
--- NOTE | 2021-07-30 10:55 | Electrocardiogram Report ---
Test Reason : Blood Pressure : / mmHG Vent. Rate : 074 BPM Atrial Rate : 074 BPM P-R Int : 130 ms QRS Dur : 128 ms QT Int : 424 ms P-R-T Axes : 077 035 059 degrees QTc Int : 470 ms Normal sinus rhythm Right bundle branch block Left ventricular hypertrophy Abnormal ECG When compared with ECG of 23-DEC-2018 08:37, No significant change was found Confirmed by Eddie Grissom ([id number]) on 07/30/2021 10:54:51 AM Referred By: REFERRED SELF Confirmed By:Eddie Grissom
--- NOTE | 2021-07-30 11:27 | Electrocardiogram Report ---
Test Reason : Blood Pressure : / mmHG Vent. Rate : 058 BPM Atrial Rate : 058 BPM P-R Int : 108 ms QRS Dur : 116 ms QT Int : 452 ms P-R-T Axes : 043 052 066 degrees QTc Int : 443 ms Sinus bradycardia with sinus arrhythmia Left ventricular hypertrophy with QRS widening Incomplete right bundle branch block Nonspecific ST abnormality Abnormal ECG When compared with ECG of 29-JUL-2021 17:29, (unconfirmed) No significant change Confirmed by Eddie Grissom ([id number]) on 07/30/2021 11:26:37 AM Referred By: REFERRED SELF Confirmed By:Eddie Grissom
[2021-07-30] MEDS ORDERED: LORazepam 2 MG/1 ML VIAL IV STA (12:14)
--- NOTE | 2021-07-30 15:27 | Hospitalist Progress Note ---
Date of Service July 30, 2021 Assessment & Plan (1) Nausea & vomiting: Plan: 35 yo male with N/V, and severe acute kidneyt failure accompanied by metabolic acidosis and primary respiratory alkalosis likely due to cannabinoid hyperemesis syndrome. Patient is also concerned abut food poisoning, though seems unlikely as main symptoms is only nausea, vomtiing. UDS showed THC use Renal function has normalized Anion gap has also closed. Will continue clear liquid diet. Patient reports normally he does not like jello as it makes him nauseous. Will add reglan, this did not help after one dose. add lorazepam patinet does appear to be feeling better. will recheck LFTs tomorrow. (2) Acute kidney injury: Plan: as stated above. Resolved with IVF. (3) Pain of right heel: Plan: from previous injury contusion diagnosed by [facility] (4) Acute dehydration: Plan: resolved. (5) Acute renal failure: Plan: creatinine has resolved. (6) Metabolic acidosis: Plan: ABG show primary resp. alkalosis and metabolic acidosis, resolved. (7) Acute respiratory alkalosis: Plan: likely due to problem 1. (8) OME (otitis media with effusion): Plan: Left otitis media with effusion. Does not appear to be bacterial. will place on sudfed, and antihistamine Admission and Anticipated Discharge Date Admission Date: July 28, 2021 Subjective 35 yo male reports that he continues to have issues with nausea. He states no significant improvement from yesterday. He also reports having left ear fullness. Review of Systems Review of Systems: All systems reviewed & are unremarkable except as noted in HPI & below Physical Exam Constitutional: WD/WN, vitals as above Eyes: PERRL, conjunctivae normal, anicteric sclerae Neck: trachea midline, no thyromegaly Respiratory: normal respiratory effort, lungs clear to auscultation Gastrointestinal (Abdomen): normal bowel sounds, soft, nontender, no hepatosplenomegaly Musculoskeletal: no cyanosis or clubbing, extremities motor strength 5/5 Skin: no rashes, warm and dry Neurologic: PERRL, EOMI, accommodation nl, no face palsy, no dysarthria Psychiatric: A+Ox3, euthymic affect Lymphatic: no cervical or axillary lymphadenopathy Results & Data Results & Data ([facility]) Vital Signs (Past 12 Hours) Vital Signs Temp Pulse Pulse Resp BP Pulse Ox 07/30/21 15:10 59 L 07/30/21 12:42 37.1 C 82 20 127/68 96 07/30/21 07:20 61 07/30/21 07:13 36.8 C 94 H 18 147/80 H 94 PG Care Time/CCT Total # of Minutes Spent Total Time Spent with Patient: Total time spent is greater than 50% in coordination of care (as documented) at patient's floor/unit and/or counseling patient: Coding Level of Care Code 53602 Subseq Hosp Care Lvl 3 Diagnoses Nausea & vomiting R11.2 Acute kidney injury N17.9 Pain of right heel M79.671 Acute dehydration E86.0 Acute renal failure N17.9 Metabolic acidosis E87.2 Acute respiratory alkalosis E87.3 OME (otitis media with effusion) H65.90 Time Spent (min) 35
[2021-07-30] MEDS: FLUTICASONE PROPIONATE NA SPR 16 GM BTL SCH (20:08)
[2021-07-30 23:06] LABS: Marijuana Quant, GCMS Urine 289 ng/mL (<5)
[2021-07-31] MEDS: LACTATED RINGER'S 1,000 ML IV SCH ×4 (02:37→21:40)
[2021-07-31] MEDS: HEPARIN SOD 5,000 UNIT/0.5 ML VIAL SQ SCH ×3 (05:25→21:40)
[2021-07-31] MEDS: ACETAMINOPHEN 325 MG TAB PO PRN (05:39)
[2021-07-31] MEDS: ONDANSETRON INJ 2 MG/ML 2 ML VIAL IV PRN ×3 (05:39→17:10)
[2021-07-31 07:09] LABS: Hematocrit (blood only) 39.2 % (42-52); Mean Corpuscular Hemoglobin 32.7 pg (25-34); Mean Corpuscular Hgb Conc 35.7 g/dL (32-36); Mean Corpuscular Volume 91.6 fL (80-100); Mean Platelet Volume 10.7 fL (7.4-10.4); Platelet Count 137 K/uL (130-400); RDW Coefficient of Variation 12.7 % (11.5-14.5); RDW Standard Deviation 42.5 fL (36.4-46.3); Red Blood Count 4.28 M/uL (4.7-6.1); White Blood Count 7.12 K/uL (4.8-10.8)
[2021-07-31 07:36] LABS: Albumin Level 4.1 gm/dl (3.4-5.0); BUN Creatinine Ratio 14.8 (10-20); Bilirubin Direct 0.3 mg/dl (0-0.2); Bilirubin,Total 1.5 mg/dl (0.2-1.0); Calcium 8.8 mg/dl (8.5-10.1); Creatinine Clr Calc Pharmacy 124.6 ml/min; Est GFR (African American) 127.2 ml/min; Est GFR (Non-African American) 109.7 ml/min; Potassium 3.9 mmol/L (3.5-5.1); Total Protein 6.2 gm/dl (6.0-8.3)
[2021-07-31] MEDS: PANTOprazole 40 MG TAB PO SCH ×2 (09:02→21:40)
[2021-07-31] MEDS: CAPSAICIN CR 0.075% 60 GM TUBE EXT SCH ×2 (09:03→21:14)
--- NOTE | 2021-07-31 10:31 | Hospitalist Progress Note ---
Date of Service July 31, 2021 Assessment & Plan (1) Nausea & vomiting: Plan: 35 yo male with N/V, and severe acute kidneyt failure accompanied by metabolic acidosis and primary respiratory alkalosis likely due to cannabinoid hyperemesis syndrome. Patient is also concerned abut food poisoning, though seems unlikely as main symptoms is only nausea, vomtiing. UDS showed THC use Renal function has normalized Anion gap has also closed. Will continue clear liquid diet. Patient reports normally he does not like jello as it makes him nauseous. Symptoms appear to be better after reglan and lorazepam LFTs also improving. will monitor. (2) Acute kidney injury: Plan: as stated above. Resolved with IVF. (3) Pain of right heel: Plan: from previous injury contusion diagnosed by [employer] [facility] f/u with [employer] (4) Acute dehydration: Plan: resolved. (5) Acute renal failure: Plan: creatinine has resolved. (6) Metabolic acidosis: Plan: ABG show primary resp. alkalosis and metabolic acidosis, resolved. (7) Acute respiratory alkalosis: Plan: likely due to problem 1. (8) OME (otitis media with effusion): Plan: Left otitis media with effusion. Does not appear to be bacterial. will place on sudfed, and antihistamine Admission and Anticipated Discharge Date Admission Date: July 28, 2021 Subjective Patient reports he was having diffuclty sleeping due to his roommate. Patient though is ffeeling better in regards to his nausea, and is drinking more fluids and tolerating french ice. will try soup later today. Review of Systems Review of Systems: All systems reviewed & are unremarkable except as noted in HPI & below Physical Exam Constitutional: WD/WN, vitals as above Eyes: PERRL, conjunctivae normal, anicteric sclerae Neck: trachea midline, no thyromegaly Respiratory: normal respiratory effort, lungs clear to auscultation Gastrointestinal (Abdomen): normal bowel sounds, soft, nontender, no hepatosplenomegaly Musculoskeletal: no cyanosis or clubbing, extremities motor strength 5/5 Skin: no rashes, warm and dry Neurologic: PERRL, EOMI, accommodation nl, no face palsy, no dysarthria Psychiatric: A+Ox3, euthymic affect Lymphatic: no cervical or axillary lymphadenopathy Results & Data Results & Data ([facility]) Vital Signs (Past 12 Hours) Vital Signs Temp Pulse Pulse Resp BP Pulse Ox 07/31/21 09:12 57 L 07/31/21 07:34 37.0 C 72 16 114/63 97 07/31/21 04:13 36.9 C 72 18 128/66 96 07/30/21 23:10 37 C 70 16 120/74 96 PG Care Time/CCT Total # of Minutes Spent Total Time Spent with Patient: Total time spent is greater than 50% in coordination of care (as documented) at patient's floor/unit and/or counseling patient: Coding Level of Care Code 54254 Subseq Hosp Care Lvl 2 Diagnoses Nausea & vomiting R11.2 Acute kidney injury N17.9 Pain of right heel M79.671 Acute dehydration E86.0 Acute renal failure N17.9 Metabolic acidosis E87.2 Acute respiratory alkalosis E87.3 OME (otitis media with effusion) H65.90 Time Spent (min) 25
[2021-07-31] MEDS ORDERED: METOCLOPRAMIDE HCL INJ 5 MG/ML 2 ML VIAL IV ONE (21:28)
[2021-07-31] MEDS ORDERED: METOCLOPRAMIDE HCL INJ 5 MG/ML 2 ML VIAL ONE (21:36)
[2021-07-31] MEDS: FLUTICASONE PROPIONATE NA SPR 16 GM BTL SCH (21:40)
[2021-07-31 21:58] LABS: Hematocrit (blood only) 36.5 % (42-52); Hemoglobin 13.2 g/dL (14.0-18.0); Mean Corpuscular Hemoglobin 32.7 pg (25-34); Mean Corpuscular Hgb Conc 36.2 g/dL (32-36); Mean Corpuscular Volume 90.3 fL (80-100); Mean Platelet Volume 10.6 fL (7.4-10.4); Platelet Count 135 K/uL (130-400); RDW Coefficient of Variation 12.5 % (11.5-14.5); RDW Standard Deviation 41.9 fL (36.4-46.3); Red Blood Count 4.04 M/uL (4.7-6.1); White Blood Count 5.92 K/uL (4.8-10.8)
[2021-08-01] MEDS: ONDANSETRON INJ 2 MG/ML 2 ML VIAL IV PRN ×3 (01:39→13:14)
[2021-08-01] MEDS: LACTATED RINGER'S 1,000 ML IV SCH ×3 (04:20→17:27)
[2021-08-01] MEDS: HEPARIN SOD 5,000 UNIT/0.5 ML VIAL SQ SCH ×3 (06:36→21:44)
[2021-08-01 07:05] LABS: Albumin Level 4.1 gm/dl (3.4-5.0); BUN Creatinine Ratio 8.5 (10-20); Bilirubin,Total 1.1 mg/dl (0.2-1.0); Creatinine Clr Calc Pharmacy 116.7 ml/min; Est GFR (African American) 119.6 ml/min; Est GFR (Non-African American) 103.2 ml/min; Globulin 2.1 gm/dl (2.5-4.0); Total Protein 6.2 gm/dl (6.0-8.3)
[2021-08-01] MEDS: CAPSAICIN CR 0.075% 60 GM TUBE EXT SCH ×2 (07:29→20:23)
[2021-08-01] MEDS: PANTOprazole 40 MG TAB PO SCH ×2 (07:29→20:24)
[2021-08-01] MEDS ORDERED: METOCLOPRAMIDE HCL INJ 5 MG/ML 2 ML VIAL IV STA (17:32)
[2021-08-01] MEDS: FLUTICASONE PROPIONATE NA SPR 16 GM BTL SCH (20:24)
--- NOTE | 2021-08-01 20:33 | Hospitalist Progress Note ---
Date of Service August 01, 2021 Assessment & Plan (1) Nausea & vomiting: Plan: 35 yo male with N/V, and severe acute kidney failure accompanied by metabolic acidosis and primary respiratory alkalosis likely due to cannabinoid hyperemesis syndrome. Patient is also concerned abut food poisoning, though seems unlikely as main symptoms is only nausea, vomtiing. UDS showed THC use Renal function has normalized Anion gap has also closed. Will continue clear liquid diet. Patient reports normally he does not like jello as it makes him nauseous. Symptoms appear to be better after reglan and lorazepam LFTs also improving. will monitor. Discharge held as patient has not been able to tolerate his diet and has been vomiting. On 08/01 patient is tolerating his clear liquid diet, joellen advance to regular. Due to nausea, and vomiting, patient has required IVF. will stop iVF if tolerates regular diet. (2) Acute kidney injury: Plan: as stated above. Resolved with IVF. (3) Pain of right heel: Plan: from previous injury contusion diagnosed [facility] [employer] [facility] (4) Acute dehydration: Plan: resolved. (5) Acute renal failure: Plan: creatinine has resolved. (6) Metabolic acidosis: Plan: ABG show primary resp. alkalosis and metabolic acidosis, resolved. (7) Acute respiratory alkalosis: Plan: likely due to problem 1. (8) OME (otitis media with effusion): Plan: Left otitis media with effusion. Does not appear to be bacterial. will place on sudfed, and antihistamine Admission and Anticipated Discharge Date Admission Date: July 28, 2021 Subjective Patient reporting that he is able to tolerate his clear liquids.Patient is interested in trying a regular diet. Review of Systems Review of Systems: All systems reviewed & are unremarkable except as noted in HPI & below Physical Exam Physical Exam: Constitutional: WD/WN, vitals as above Ears: effusion noted on left ear inspection with otoscope, tympanic membrane is intacted. Eyes: PERRL, conjunctivae normal, anicteric sclerae Neck: trachea midline, no thyromegaly Respiratory: normal respiratory effort, lungs clear to auscultation Gastrointestinal (Abdomen): normal bowel sounds, soft, nontender, no hepatosplenomegaly Musculoskeletal: no cyanosis or clubbing, extremities motor strength 5/5 Skin: no rashes, warm and dry Neurologic: PERRL, EOMI, accommodation nl, no face palsy, no dysarthria Psychiatric: A+Ox3, euthymic affect Lymphatic: no cervical or axillary lymphadenopathy Results & Data Results & Data ([facility]) Vital Signs (Past 12 Hours) Vital Signs Temp Pulse Resp BP Pulse Ox 08/01/21 14:06 37.1 C 71 16 115/58 L 97 PG Care Time/CCT Total # of Minutes Spent Total Time Spent with Patient: Total time spent is greater than 50% in coordination of care (as documented) at patient's floor/unit and/or counseling patient: Coding Level of Care Code 33922 Subseq Hosp Care Lvl 2 Diagnoses Nausea & vomiting R11.2 Acute kidney injury N17.9 Pain of right heel M79.671 Acute dehydration E86.0 Acute renal failure N17.9 Metabolic acidosis E87.2 Acute respiratory alkalosis E87.3 OME (otitis media with effusion) H65.90
[2021-08-02] MEDS: HEPARIN SOD 5,000 UNIT/0.5 ML VIAL SQ SCH (06:15)
[2021-08-02] MEDS: CAPSAICIN CR 0.075% 60 GM TUBE EXT SCH (07:53)
--- NOTE | 2021-08-08 23:24 | Discharge Summary ---
Date of Service August 02, 2021 Admission HPI Per Admitting Provider 35 yo male on "prescription" marijuana and who drinks 3 x weekly 3 mixed alcoholic beverages on average, presentes with a 2 day history of nausea vomiting. Patient reports that he has not been able to keep any food down. Patient denies blood in his vomit. Patient reports cramping in his abdomen. Principal Diagnosis nausea/vomiting perhaps from cannabinoid hyperemesis syndrome Discharge Exam Constitutional: WD/WN, vitals as above Ears: effusion noted on left ear inspection with otoscope, tympanic membrane is intacted. Eyes: PERRL, conjunctivae normal, anicteric sclerae Neck: trachea midline, no thyromegaly Respiratory: normal respiratory effort, lungs clear to auscultation Gastrointestinal (Abdomen): normal bowel sounds, soft, nontender, no hepatosplenomegaly Musculoskeletal: no cyanosis or clubbing, extremities motor strength 5/5 Skin: no rashes, warm and dry Neurologic: PERRL, EOMI, accommodation nl, no face palsy, no dysarthria Psychiatric: A+Ox3, euthymic affect Lymphatic: no cervical or axillary lymphadenopathy Discharge Data Allergies Allergy/AdvReac Type Severity Reaction Status Date / Time coffee (Coffea arabica) AdvReac Congested Verified 07/28/21 17:49 tomato AdvReac Diarrhea Verified 07/28/21 17:49 Consultations 07/28/21 11:25 ED Decision to Admit Stat Hospital Course (1) Nausea & vomitin yo male with N/V, and severe acute kidney failure accompanied by metabolic acidosis and primary respiratory alkalosis likely due to cannabinoid hyperemesis syndrome. Patient is also concerned abut food poisoning, though seems unlikely as main symptoms is only nausea, vomtiing. UDS showed THC use Renal function has normalized Anion gap has also closed. tolerated clear liquid diet. Patient reports normally he does not like jello as it makes him nauseous. Symptoms appear to be better after reglan and lorazepam LFTs also improving. will monitor. Patient will be discharged as he states he tolerated regular diet overnight. Due to nausea, and vomiting, patient has required IVF. will stop iVF if tolerates regular diet. (2) Acute kidney injury: as stated above. Resolved with IVF. (3) Pain of right heel: from previous injury contusion diagnosed [facility] (4) Acute dehydration: resolved. (5) Acute renal failure: creatinine has resolved. (6) Metabolic acidosis: ABG show primary resp. alkalosis and metabolic acidosis, resolved. (7) Acute respiratory alkalosis: likely due to problem 1. (8) OME (otitis media with effusion): Left otitis media with effusion. Does not appear to be bacterial. will place on sudfed, and antihistamine Total Time Total Time Spent Total Time Spent (In Minutes): 32 Discharge Plan Discharge Items Patient Disposition: Home - Self-Care Reason For Visit: DOUBLE ACID BASE DISORDER; ANION GAP MET ACIDOSIS/ Discharge Diagnosis: double acid base disorder, anion gap metabolic acidosi Activity: Resume your previous activity Non-emergency contact: Primary Care Provider Call non-emergency contact if: you have any medication questions Follow-up/Referrals: Matt Ferrer IV, MD [Primary Care Provider] - Diet: Regular Addtl Attending Provider Instructions: You were seen for nausea and vomiting. Your acid base levels were severely abnormal and you were found to be in acute kidney failure. Thankfully you improved with IVF. Your nausea seemed to improve but very slowly. Tis can be due to different conditions: one could be food poisoning, could be due to your post nasal dirp, this could also be from cannabinoid hyperemesis syndrome. If it is due to marijuana, you can abstain for a month and retry it at a lower dose. You could do a trial now, but beware it may make your nausea worse. will recommend followup with ENT to assess your Left ear and post nasal drip. Below I recommended to hold the marijuana, but will defer to your PCP. Pending Studies at Discharge: No Stand-Alone Forms: My [facility], Smoking Cessation Medications and DC Order Prescriptions: New fluticasone propionate 50 mcg/actuation [place],Suspension 2 spray NA Q24H Qty: 16 RF: 0 Discontinued Medical Marijuana 0 MG 0 mg inhalation UD RF: 0 Discharge Orders: Discharge Order (Routine); Ordered 08/02/21 Ordered By: Virgilio Mai Admission Data Admit Date/Time: 07/28/21 13:53 Attending Provider: Virgilio Mai Admit Provider: Virgilio Mai Primary Care Provider: Matt Ferrer IV Other Providers: Virgilio Mai Other Interventions: Discharge Summary Assessment (RN) Last Done: 08/02/21 12:16 Coding Level of Care Code D/C DAY MANAGEMENT >30 MINS Diagnoses Nausea & vomiting R11.2 Acute kidney injury N17.9 Pain of right heel M79.671 Acute dehydration E86.0 Acute renal failure N17.9 Metabolic acidosis E87.2 Acute respiratory alkalosis E87.3 OME (otitis media with effusion) H65.90
== END 2021-08-02 12:37 | disposition home or self-care (01) | DRG 897 ==
LOC: ED 09:16 → OBSVTOIN 13:53 → 2N 13:53 → INTOOBSV 13:53 → 2N 16:10 → 3W 07-31 14:56
DX: E86.0 Dehydration; R11.2 Nausea with vomiting, unspecified; E87.4 Mixed disorder of acid-base balance; M79.671 Pain in right foot; F17.210 Nicotine dependence, cigarettes, uncomplicated; N17.9 Acute kidney failure, unspecified; F12.988 Cannabis use, unspecified with other cannabis-induced disorder; H66.92 Otitis media, unspecified, left ear